=== PATIENT | male | born 1995 | race Caucasian/White ===

== ENCOUNTER 2018-12-23 22:18 | Emergency (ER) | payer SELFPAY | END 2018-12-24 01:23 | disposition home or self-care (01) | LOC: JER 12-24 01:23 → JERFT 22:18 | DX: S92.512A Displaced fracture of proximal phalanx of left lesser toe(s), initial encounter for closed fracture (principal); W21.02XA Struck by soccer ball, initial encounter; Y93.66 Activity, soccer; Y92.322 Soccer field as the place of occurrence of the external cause; Y99.8 Other external cause status ==